=== PATIENT | male | born 1995 | race Hispanic/Latino ===

== ENCOUNTER 2025-05-09 23:01 | Emergency (ER) | payer SELFPAY ==
[2025-05-09 23:04] VITALS: BP 135/104
[2025-05-09 23:19] LABS: Hematocrit 44.9 % (39.0-52.0); Hemoglobin 15.2 g/dL (13.0-18.0); Mean Corp Hgb Conc. 33.9 g/dL (33.0-37.0); Mean Corpuscular Volume 91.6 fL (80.0-94.0); Nucleated Red Blood Cells % 0 % (-); Platelet Count 261 10^3/uL (130-400); Red Cell Dist. Width 12.4 % (11.5-14.5)
[2025-05-09 23:33] LABS: ALT (SGPT) 28 U/L (0-50); AST (SGOT) 21 U/L (17-59); Albumin 4.7 g/dl (3.5-5.0); Alkaline Phosphatase 79 U/L (38-126); Blood Urea Nitrogen 13 mg/dl (9-20); Calcium 9.2 mg/dl (8.4-10.2); Carbon Dioxide 32 mmol/L (22-30); Chloride 102 mmol/L (98-107); Glucose 100 mg/dl (70-99); Lipase 72 U/L (23-300); Potassium 4.8 mmol/L (3.5-5.1); Sodium 137 mmol/L (135-145); Total Protein 7.2 g/dl (6.3-8.2); eGFR > 60.00
[2025-05-10 03:26] VITALS: BP 109/74
--- NOTE | 2025-05-10 04:08 | ED.GENMED ---
History of Present Illness
<Celina TERRIE Clayton - Last Filed: 05/10/25 04:35>
General
Chief Complaint: Abdominal Pain
Source: patient and family
Time Seen by Provider: 05/10/25 04:07
History of Present Illness
History of Present Illness:
Patient is a 29 y/o M with PMHx of biliary colic who presents to ED with abdominal pain x 2 days. Patient's pain in the RUQ and radiates to the chest and back. Pain is 7/10, constant since yesterday and is worse with eating foods especially fatty or
spicy foods. Patient reports subjective fever yesterday. Patient has also had intermittent nausea since yesterday. Patient denies headache, palpitations, SOB, cough, constipation, diarrhea, dysuria, and polyuria.
Past History
<Celina TERRIE Clayton - Last Filed: 05/10/25 04:35>
Social History
Tobacco: Non-smoker
Alcohol: None
Personal: Single
Review of Systems
<Celina TERRIE Clayton - Last Filed: 05/10/25 04:35>
Review of Systems
Allergies reviewed?: Yes
Other source history: family
Constitutional: Reports fever; Denies fatigue or chills
Respiratory: Reports no symptoms
Cardiac: Reports no symptoms
ABD/GI: Reports abdominal pain and nausea; Denies vomiting, diarrhea or constipated
: Reports no symptoms
Neurological: Reports no symptoms
Phy Exam
<Celina TERRIE Clayton - Last Filed: 05/10/25 04:35>
General Physical Exam
General Presentation: well appearing
General age: appears stated age
General Skin: warm and dry
General Habitus: normal
General Mental: alert
General Hydration: appears well hydrated
Cardiovascular Exam
Cardiovascular Exam: regular rate/rhythm
Heart Sounds: normal
Pulmonary Exam
Pulmonary Exam: lungs clear
Gastrointestinal Exam
Gastrointestinal Exam: normal bowel sounds, soft and non distended
Palpation: left upper quadrant: Moderate tenderness, left lower quadrant: No tenderness, right upper quadrant: Moderate tenderness and right lower quadrant: No tenderness
Abdominal Scars: right lower quadrant (appendectomy )
Auscultation of Abdomen: normal
Liver Exam: RUQ tenderness
Course
<TERRIE Eden - Last Filed: 05/10/25 04:35>
Orders/Labs/Results
Orders:
Orders
05/09/25 23:09
Electrocardiogram (*1) Urgent
Reason for Study: Abdominal Pain
EKG- Treatment ONCE
05/09/25 23:14
Complete Blood Count/With Diff Urgent
Comprehensive Metabolic Panel Urgent
Lipase Urgent
05/10/25 04:21
US Abdomen Complete/Upper Urgent
Comment:
Reason For Exam: acute RUQ-upper abd pain, nausea
05/10/25 05:01
Mag Hydrox/Al Hydrox/Simeth [Maalox] 30 ml Phenobarb/Hyoscy/Atropine/Scop [] 10 ml Viscous Lidocaine 2% [Xylocaine Viscous Cup] 10 ml PO NOW
Pantoprazole [Protonix] 40 mg PO NOW STA
05/10/25 05:09
Mag Hydrox/Al Hydrox/Simeth [Maalox] 30 ml .ROUTE .STK-MED ONE
Phenobarb/Hyoscy/Atropine/Scop [] 10 ml .ROUTE .STK-MED ONE
Viscous Lidocaine 2% [Xylocaine Viscous Cup] 15 ml .ROUTE .STK-MED ONE
05/10/25 06:09
Sucralfate Suspension [Carafate Suspension] 1 gm PO NOW STA
05/10/25 06:37
Ketorolac [Toradol] 60 mg IM NOW STA
Abnormal Lab Results
05/09/25
23:14
Absolute Monos (auto) 0.7 H 10^3/uL
(0.1-0.6)
Carbon Dioxide 32 H mmol/L
(22-30)
Glucose 100 H mg/dl
(70-99)
05/09/25 23:14
05/09/25 23:14
Vital Signs
Initial and Last Documented VS:
Initial Vital Signs
Temp Pulse Resp BP Pulse Ox
98 F 63 20 135/104 100
05/09/25 23:04 05/09/25 23:04 05/09/25 23:04 05/09/25 23:04 05/09/25 23:04
Last Documented Vital Signs
Temp Pulse Resp BP Pulse Ox
98.1 F 58 16 100/57 98
05/10/25 03:26 05/10/25 07:10 05/10/25 07:10 05/10/25 07:10 05/10/25 07:10
<Rita Wang, DO - Last Filed: 05/10/25 08:24>
Orders/Labs/Results
Orders:
Orders
05/09/25 23:09
Electrocardiogram (*1) Urgent
Reason for Study: Abdominal Pain
EKG- Treatment ONCE
05/09/25 23:14
Complete Blood Count/With Diff Urgent
Comprehensive Metabolic Panel Urgent
Lipase Urgent
05/10/25 04:21
US Abdomen Complete/Upper Urgent
Comment:
Reason For Exam: acute RUQ-upper abd pain, nausea
05/10/25 05:01
Mag Hydrox/Al Hydrox/Simeth [Maalox] 30 ml Phenobarb/Hyoscy/Atropine/Scop [] 10 ml Viscous Lidocaine 2% [Xylocaine Viscous Cup] 10 ml PO NOW
Pantoprazole [Protonix] 40 mg PO NOW STA
05/10/25 05:09
Mag Hydrox/Al Hydrox/Simeth [Maalox] 30 ml .ROUTE .STK-MED ONE
Phenobarb/Hyoscy/Atropine/Scop [] 10 ml .ROUTE .STK-MED ONE
Viscous Lidocaine 2% [Xylocaine Viscous Cup] 15 ml .ROUTE .STK-MED ONE
05/10/25 06:09
Sucralfate Suspension [Carafate Suspension] 1 gm PO NOW STA
05/10/25 06:37
Ketorolac [Toradol] 60 mg IM NOW STA
Abnormal Lab Results
05/09/25
23:14
Absolute Monos (auto) 0.7 H 10^3/uL
(0.1-0.6)
Carbon Dioxide 32 H mmol/L
(22-30)
Glucose 100 H mg/dl
(70-99)
05/09/25 23:14
05/09/25 23:14
Vital Signs
Initial and Last Documented VS:
Initial Vital Signs
Temp Pulse Resp BP Pulse Ox
98 F 63 20 135/104 100
05/09/25 23:04 05/09/25 23:04 05/09/25 23:04 05/09/25 23:04 05/09/25 23:04
Last Documented Vital Signs
Temp Pulse Resp BP Pulse Ox
98.1 F 58 16 100/57 98
05/10/25 03:26 05/10/25 07:10 05/10/25 07:10 05/10/25 07:10 05/10/25 07:10
<TERRIE Eden - Last Filed: 05/10/25 04:35>
MDM/Problems Addressed
Differential Diagnosis Includes:
Differential diagnosis includes but is not limited to:
1. biliary colic
2. gastritis
3. cholecystitis
4. cholelithiasis
5. choledocholithiasis
6. hepatitis
7. pancreatitis
MDM/Problems Addressed:
Abdominal pain x 1 day
-CBC/CMP
-Abdominal US
<TERRIE Eden - Last Filed: 05/10/25 04:35>
*Pulse Oximetry
SaO2: 100
Oxygen Mode of Delivery: Room air
Patient hypoxic: no
*Critical Care Note
Total Time (30-74mins, 75-104mins- exclusive of procedures): Not Applicable
<Rita Wang DO - Last Filed: 05/10/25 08:24>
*Radiology
Radiology exam reviewed: radiology read reviewed
*EKG
Interpreted by ED Provider?: Yes
Interpretation: normal
Comparison EKG: no comparison EKG present
Rate: bradycardiac
Rhythm: sinus
[place]: normal axis
Interval: normal interval
QRS Pattern: normal QRS
Ischemia: no ischemia
*[employer] Interpretation
Rate: bradycardiac
Interpretation: normal
Rhythm: sinus
ED Attending Note
<TERRIE Eden - Last Filed: 05/10/25 04:35>
-
Portions of this chart may have been created with voice recognition software.� Occasional wrong word or��sound alike� substitutions may have occurred due to the inherent limitations of voice recognition software.
<Rita Wang DO - Last Filed: 05/10/25 08:24>
ED Attending Note
Patient seen and examined by attending physician: Yes
I performed the substantive portion of visit, reviewed & personally made and approve the management plan that is documented in note by myself or MALIKA.: Yes
ED Attending Note:
This is a 29-year-old primarily Iranian-speaking male who presents with 2-day history of epigastric, right upper quadrant pain. Pain is constant, worsens with meals. Associated with nausea without vomiting. Occasional radiation to his chest but
no cough no shortness of breath, no back pain or neck pain. He reports similar episode a few years ago while residing in [place], diagnosed with biliary colic at that time.
He has not had a fever nor chills. No diarrhea nor constipation. He denies significant alcohol nor NSAID use.
He takes no medicines on a daily basis.
His only previous surgery was appendectomy.
29-year-old Iranian-speaking gentleman appears his stated age, awake and alert, pleasant, appears in no acute distress. He has 2 adults accompanying who are assisting with interpretation.
Oral mucosa is moist.
Neck is supple, nontender. No adenopathy.
Heart is regular rate and rhythm. No chest wall tenderness.
Lungs are clear to auscultation. No respiratory distress.
Abdomen is soft, nondistended, mild to moderate tenderness epigastric as well as right upper quadrant. No rebound or guarding or rigidity. No palpable masses. Normoactive bowel sounds.
Concern for Cholelithiasis, cholecystitis, pancreatitis, gastroduodenitis, peptic ulcer disease, GERD. Gastroenteritis, small bowel obstruction, ACS are much less likely.
Overall well in appearance. Vital signs within normal limits.
Labs are unremarkable, within normal limits.
EKG is unremarkable as well showing sinus bradycardia, no acute ST-T wave abnormalities.
Will check abdominal ultrasound. If unremarkable will trial a dose of Protonix and GI cocktail.
06:40
Ultrasound shows mobile gallstones but no evidence of cholecystitis. Normal gallbladder wall, normal common bile duct. Negative Santacruz sign.
Patient reports moderate proved in pain after Protonix and GI cocktail and Carafate but continues with some epigastric to right upper quadrant discomfort.
Will give an IM dose of Toradol and continue to observe.
I suspect an element of gastritis as well as biliary colic but no evidence of cholecystitis and overall pain is improving.
08:15
Patient is pain-free and comfortable.
He now reports that he has prior history of gastritis and prior history of H. pylori, treated for H. pylori a few years ago. He is wondering if H. pylori has returned.
H. pylori could be an element of gastritis. For now recommend initiation of a course of Protonix. Recommend bland diet avoiding spicy or fried foods, avoid fatty foods as well.
Will prescribe a few Vicodin for as needed return of pain.
Will refer to our free clinic for follow-up and further evaluation.
Return precautions discussed.
Discharge Plan
Departure
Patient Disposition: Home (Routine Discharge)
Date of Disposition: 05/10/25
Time of Disposition: 08:19
Patient with high blood pressure during this ER visit?: No
Condition: Good
Discharge Problem:
acute biliary colic, Cholelithiases, Acute gastritis
Instructions: Low-fat diet, Gastritis - ED discharge instructions, Gallstones - ED discharge instructions
Prescriptions:
New
pantoprazole [Protonix] 40 mg tablet,delayed release (DR/EC)
40 mg PO DAILY Qty: 30 0RF
hydrocodone-acetaminophen 5-300 mg tablet
1 tab PO Q8H PRN (Reason: Pain) Qty: 10 0RF
Referrals:
[facility] [[facility]] - Call in 1-3 days for appt
NONE,* [Family Provider, Internal Medicine]
Interventions
Interventions:
*Risk Screen - Suicide Last Done: 05/09/25 23:04
*General Assessment Last Done: 05/09/25 23:04
*Neglect/Abuse Screening Last Done: 05/09/25 23:04
*ED- Fall Risk Assessment Last Done: 05/10/25 03:58
*ED COVID-19 Vaccine History Last Done: 05/10/25 03:58
SP-Sycwno-Fmsrzqhcjv Assessment Last Done: 05/10/25 03:58
Discharge Date and Time
Print Language: GREEK
[2025-05-10 04:11] VITALS: BMI 21.0
[2025-05-10] MEDS: PROTONIX 40 MG PO (05:11)
[2025-05-10] MEDS: MAALOX 50 PO (05:12)
[2025-05-10] MEDS: CARAFATE SUSPENSION 1 GM PO (06:16)
[2025-05-10] MEDS: TORADOL 60 MG IM (07:06)
[2025-05-10 07:10] VITALS: BP 100/57
--- NOTE | 2025-05-10 08:54 | EDRN ---
English Language Learner Teacher ED302: Reviewed discharge instructions with patient. Verbalized understanding. Ambulated with steady gait to the lobby.
[2025-05-10 08:55] VITALS: BP 110/76
== END 2025-05-10 08:45 | disposition home or self-care (01) ==
LOC: EMR 23:01
PROVIDERS: EMERGENCY PHYSICIAN Emergency Medicine
DX: K29.00 Acute gastritis without bleeding (principal); K80.70 Calculus of gallbladder and bile duct without cholecystitis without obstruction; K52.9 Noninfective gastroenteritis and colitis, unspecified; Z87.19 Personal history of other diseases of the digestive system
CPT/HCPCS: 99284; 96372; 76700; 80053; 83690; 85025; 93005

== ENCOUNTER → 2025-08-26 14:06 | Outpatient (REF) | payer OTHER, SELFPAY ==
[2025-08-26 16:28] LABS: ALT (SGPT) 29 U/L (0-50); AST (SGOT) 26 U/L (17-59); Albumin 4.6 g/dl (3.5-5.0); Alkaline Phosphatase 92 U/L (38-126); Blood Urea Nitrogen 17 mg/dl (9-20); Calcium 8.9 mg/dl (8.4-10.2); Carbon Dioxide 31 mmol/L (22-30); Chloride 100 mmol/L (98-107); Potassium 4.2 mmol/L (3.5-5.1); Sodium 138 mmol/L (135-145); Total Protein 7.0 g/dl (6.3-8.2); eGFR > 60.00
[2025-08-26 16:36] LABS: Glucose 79 mg/dl (70-99)
[2025-08-27 10:25] LABS: Glycohemoglobin (HgbA1c) 5.3 % (4.0-5.9)
[2025-08-29 00:32] LABS: H. pylori Antigen, Fecal Negative (Negative)
== END ==
LOC: REG 14:06
PROVIDERS: ATTENDING PHYSICIAN Internal Medicine
DX: R10.13 Epigastric pain (principal); Z13.1 Encounter for screening for diabetes mellitus
CPT/HCPCS: 36415; 80053; 83036; 87338